=== PATIENT | male | born 1980 | race Hispanic/Latino ===

== ENCOUNTER 2017-04-07 16:12 | Emergency (ER) | payer OTHER ==
[2017-04-07 16:16] VITALS: RESP 16
[2017-04-07] MEDS ORDERED: Oxycodone/Acetaminophen 5/325 mg Tab PO STA (16:17)
[2017-04-07] MEDS ORDERED: Sodium Chloride 0.9% 1,000 ML IV STA (16:20)
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
[2017-04-07] MEDS ORDERED: Iohexol 300 100 ML IJ ONE (16:35)
[2017-04-07] MEDS ORDERED: Sodium Chloride 0.9% 50 ML IV ONE (16:36)
[2017-04-07] MEDS ORDERED: Morphine 4 MG/ML VIAL ONE ×2 (16:41→20:01)
[2017-04-07] MEDS ORDERED: Morphine 4 MG/ML VIAL IV STA (16:50)
[2017-04-07 17:16] LABS: HEMOGLOBIN 15.5 g/dL (12.0-18.0); MEAN CORPUSCULAR HEMOGLOBIN 27.3 pg (27.0-31.0); MEAN CORPUSCULAR HGB CONC 32.9 g/dL (33.0-37.0); RBC 5.69 Mil/uL (4.40-5.90); RED CELL DISTRIBUTION WIDTH 13.7 % (11.5-14.5); WHITE BLOOD COUNT 11.9 K/uL (4.8-10.8)
[2017-04-07 17:25] LABS: ALB/GLOB RATIO 1.6 (1.0-2.1); ALBUMIN 4.3 g/dL (3.5-5.0); ALT/SGPT 36 U/L (21-72); AST/SGOT 29 U/L (17-59); BLOOD UREA NITROGEN 19 mg/dl (9-20); CALCIUM 9.5 mg/dL (8.4-10.2); GFR AFRICAN-AMERICAN > 60; GFR NON-AFRICAN AMERICAN > 60
--- NOTE | 2017-04-07 17:37 | CT ---
CT lumbar spine without IV contrast Indication: Pain status post fall Comparison: None available Technique: Noncontrast axial images of the lumbar spine were provided. Sagittal and coronal reformatted images were generated and reviewed. This CT exam was performed using 1 or more of the falling dose reduction techniques: Automated exposure control, adjustment of the MAA and/or kV according to patient size, and/or use of iterative reconstruction technique. Total exam DLP: 1328.75 MGy-cm Findings: Acute fracture deformity of the L1 vertebral body compatible with compression fracture. There is an approximately 10-15 percent loss of height. No retropulsion of fracture fragments evident. 9 mm sclerotic focus involving the posterior inferior aspect of the L2 vertebral body. This focus abuts the cortex. There is no evidence of associated osseous destructive changes. Vertebral body heights appear otherwise within normal limits. Alignment appears satisfactory. No subluxation identified. Paraspinal soft tissues appear unremarkable. Limited visualization of the intra-abdominal and intrapelvic contents appear unremarkable. Impression: Evidence of acute compression fracture deformity of the L1 vertebral body. No evidence of retropulsion of fracture fragments. Correlate clinically. Indeterminate 9 mm sclerotic focus involving the posterior inferior aspect of the L2 vertebral body. This focus abuts the cortex. There is no evidence of associated osseous destructive changes. Appearance favored to reflect a benign process. Correlate clinically. Recommend outpatient MRI further evaluation/characterization.
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
[2017-04-07] MEDS ORDERED: Morphine 4 MG/ML VIAL IVP STA (20:02)
[2017-04-07 20:44] VITALS: BP 147/90; PULSE 78; TEMP 98; O2SAT 100
== END 2017-04-07 20:39 | disposition home or self-care (01) ==
LOC: H.ER 16:12
DX: S32.019A Unspecified fracture of first lumbar vertebra, initial encounter for closed fracture (principal); V19.3XXA Pedal cyclist (driver) (passenger) injured in unspecified nontraffic accident, initial encounter; Y93.55 Activity, bike riding

== ENCOUNTER 2017-09-30 07:06 | Emergency (ER) | payer OTHER ==
[2017-09-30 07:10] VITALS: BMI 31.6
[2017-09-30 07:13] VITALS: TEMP 99.2
--- NOTE | 2017-09-30 08:14 | ED PDOC ---
HPI: General Adult Time Seen by Provider: 09/30/17 07:11 Chief Complaint (Nursing): Flu-like Symptoms Chief Complaint (Provider): Flu-like Symptoms History Per: Patient History/Exam Limitations: no limitations Onset/Duration Of Symptoms: Days (x3) Current Symptoms Are (Timing): Still Present Additional Complaint(s): 37 year old male with a past medical history of HTN, who presents to the ED complaining of a fever with associated cough and congestion x3 days. Also confirms sore throat, but is able to swallow. Patient reports 1 episode of vomiting and 1 episode of diarrhea, which have both resolved. Denies chest pain , shortness of breath, diarrhea, or dysuria. PMD: Provider TBD Past Medical History Reviewed: Historical Data, Nursing Documentation, Vital Signs Vital Signs: Last Vital Signs Temp 99.2 F 09/30/17 07:10 Pulse 86 09/30/17 08:25 Resp 18 09/30/17 08:25 BP 132/76 09/30/17 08:25 Pulse Ox 97 09/30/17 08:29 - Medical History PMH: HTN - Surgical History Surgical History: No Surg Hx - Family History Family History: States: Unknown Family Hx - Immunization History Hx Tetanus Toxoid Vaccination: No Hx Influenza Vaccination: Yes Hx Pneumococcal Vaccination: No - Home Medications Home Medications: Ambulatory Orders Medication Instructions Recorded Famotidine [Pepcid] 20 mg PO HS #20 tab 10/02/15 Naproxen [Naprosyn] 1 tab PO BID PRN #25 tab 10/02/15 Home Med 1 unit .ROUTE PRN #1 ea 04/07/17 Naproxen 500 mg PO Q12H PRN #20 ect 04/07/17 oxyCODONE/Acetaminophen [Percocet 1 ea PO Q6H PRN #20 tab 04/07/17 5/325 mg Tab] Benzonatate [Tessalon Perles] 100 mg PO BID PRN 5 Days sgl 09/30/17 Ibuprofen [Motrin] 600 mg PO TID 7 Days tab 09/30/17 - Allergies Allergies/Adverse Reactions: Allergies Allergy/AdvReac Type Severity Reaction Status Date / Time No Known Allergies Allergy Verified 10/02/15 15:58 Review of Systems ROS Statement: Except As Marked, All Systems Reviewed And Found Negative Constitutional: Positive for: Fever ENT: Positive for: Throat Pain Cardiovascular: Negative for: Chest Pain Respiratory: Positive for: Cough. Negative for: Shortness of Breath Gastrointestinal: Positive for: Vomiting, Diarrhea. Negative for: Abdominal Pain, Hematemesis Genitourinary Male: Negative for: Dysuria Neurological: Negative for: Weakness, Numbness Physical Exam - Reviewed Nursing Documentation Reviewed: Yes Vital Signs Reviewed: Yes - Physical Exam Appears: Positive for: Non-toxic, No Acute Distress Head Exam: Positive for: ATRAUMATIC, NORMAL INSPECTION, NORMOCEPHALIC Skin: Positive for: Normal Color, Warm, Dry. Negative for: Rash Eye Exam: Positive for: EOMI, Normal appearance, PERRL ENT: Positive for: Nasal Congestion Neck: Positive for: Normal, Painless ROM, Supple Cardiovascular/Chest: Positive for: Regular Rate, Rhythm. Negative for: Murmur Respiratory: Positive for: Normal Breath Sounds. Negative for: Respiratory Distress Gastrointestinal/Abdominal: Positive for: Normal Exam, Bowel Sounds, Soft. Negative for: Tenderness Back: Positive for: Normal Inspection. Negative for: L CVA Tenderness, R CVA Tenderness, Vertebral Tenderness Extremity: Positive for: Normal ROM. Negative for: Pedal Edema, Deformity Neurologic/Psych: Positive for: Alert, Oriented (x3). Negative for: Motor/ Sensory Deficits - ECG O2 Sat by Pulse Oximetry: 97 (RA) Pulse Ox Interpretation: Normal - Progress ED Course And Treament: 900: Stable. AAOx3. Pain free. Tolerated po. Fu with pcp. Medical Decision Making Medical Decision Making: Time: 07:30 Initial Impression: URI r/o influenza Initial Plan: --Influenza A B --Reevaluation Time: 08:15 Upon provider evaluation patient is medically stable, and requires no further treatment in the ED at this time. Patient will be discharged with Rx for Benzonatate and Ibuprofen. Counseling was provided and all questions were answered regarding diagnosis and need for follow up with PMD. There is agreement to discharge plan. Return if symptoms persist or worsen. Scribe Attestation: Documented by Faizan Hyde, acting as a scribe for Nixon Figueroa MD. Provider Scribe Attestation: All medical record entries made by the Scribe were at my direction and personally dictated by me. I have reviewed the chart and agree that the record accurately reflects my personal performance of the history, physical exam, medical decision making, and the department course for this patient. I have also personally directed, reviewed, and agree with the discharge instructions and disposition. Disposition - Clinical Impression Clinical Impression: URI (upper respiratory infection) - Patient ED Disposition Is Patient to be Admitted: No Counseled Patient/Family Regarding: Studies Performed, Diagnosis, Need For Followup, Rx Given - Disposition Referrals: Nicki Borja MD [Primary Care Provider] - 10/01/17 Disposition: Routine/Home Disposition Time: 08:15 Condition: STABLE Additional Instructions: Return if not better in 3 days. Prescriptions: Benzonatate [Tessalon Perles] 100 mg PO BID PRN 5 Days sgl PRN Reason: Cough Ibuprofen [Motrin] 600 mg PO TID 7 Days tab Instructions: Upper Respiratory Infection (ED) Forms: [facility] ED School/Work Excuse Print Language: HUNGARIAN
[2017-09-30 08:27] VITALS: BP 132/76; PULSE 86; RESP 18
[2017-09-30 08:28] VITALS: O2SAT 97
== END 2017-09-30 08:26 | disposition home or self-care (01) ==
LOC: H.ER 07:06
DX: J06.9 Acute upper respiratory infection, unspecified (principal); I10 Essential (primary) hypertension

== ENCOUNTER 2018-03-17 03:52 | Emergency (ER) | payer OTHER ==
[2018-03-17 03:52] VITALS: BMI 31.6
[2018-03-17 04:11] VITALS: O2SAT 100
[2018-03-17] MEDS ORDERED: Iohexol 240 (50 ml) PO ONE (04:21)
--- NOTE | 2018-03-17 04:24 | ED PDOC ---
HPI: Abdomen Time Seen by Provider: 03/17/18 04:08 Chief Complaint (Nursing): Abdominal Pain Chief Complaint (Provider): abdominal pain History Per: Patient History/Exam Limitations: no limitations Onset/Duration Of Symptoms: Days (4), Waxing/Waning Current Symptoms Are (Timing): Still Present Location Of Pain/Discomfort: Diffuse Associated Symptoms: Nausea Additional Complaint(s): 38 y/o male presents for evaluation of diffuse abdominal pain x 4 days. Associated nausea. DEnies fever, chest pain, shortness of breath, palpitations , vomiting, changes in bowel movements, urinary symptoms, recent travel, sick contacts. No relief with Zantac, Advil taken at home. Past Medical History Reviewed: Historical Data, Nursing Documentation, Vital Signs Vital Signs: Last Vital Signs Temp 98.6 F 03/17/18 04:08 Pulse 75 03/17/18 04:08 Resp 16 03/17/18 04:08 BP 144/96 H 03/17/18 04:08 Pulse Ox 100 03/17/18 04:24 - Medical History PMH: HTN - Surgical History Surgical History: No Surg Hx - Family History Family History: States: Unknown Family Hx - Living Arrangements Living Arrangements: With Family - Immunization History Hx Tetanus Toxoid Vaccination: No Hx Influenza Vaccination: Yes Hx Pneumococcal Vaccination: No - Home Medications Home Medications: Ambulatory Orders Medication Instructions Recorded Famotidine [Pepcid] 20 mg PO HS #20 tab 10/02/15 Naproxen [Naprosyn] 1 tab PO BID PRN #25 tab 10/02/15 Home Med 1 unit .ROUTE PRN #1 ea 04/07/17 Naproxen 500 mg PO Q12H PRN #20 ect 04/07/17 oxyCODONE/Acetaminophen [Percocet 1 ea PO Q6H PRN #20 tab 04/07/17 5/325 mg Tab] Benzonatate [Tessalon Perles] 100 mg PO BID PRN 5 Days sgl 09/30/17 Ibuprofen [Motrin] 600 mg PO TID 7 Days tab 09/30/17 - Allergies Allergies/Adverse Reactions: Allergies Allergy/AdvReac Type Severity Reaction Status Date / Time No Known Allergies Allergy Verified 03/17/18 04:08 Review of Systems ROS Statement: Except As Marked, All Systems Reviewed And Found Negative Gastrointestinal: Positive for: Abdominal Pain Physical Exam - Reviewed Nursing Documentation Reviewed: Yes Vital Signs Reviewed: Yes - Physical Exam Appears: Positive for: Well, Non-toxic, No Acute Distress Head Exam: Positive for: ATRAUMATIC, NORMAL INSPECTION, NORMOCEPHALIC Skin: Positive for: Normal Color Eye Exam: Positive for: Normal appearance ENT: Positive for: Normal ENT Inspection Cardiovascular/Chest: Positive for: Regular Rate, Rhythm Respiratory: Positive for: Normal Breath Sounds Gastrointestinal/Abdominal: Positive for: Bowel Sounds, Soft, Tenderness ( diffuse) Back: Positive for: Normal Inspection Extremity: Positive for: Normal ROM Neurologic/Psych: Positive for: Alert, Oriented (x3) - Laboratory Results Result Diagrams: 03/17/18 04:38 03/17/18 04:38 - ECG ECG: Positive for: Viewed By Me (reviewed by Racquel attending) ECG Rhythm: Positive for: Sinus Rhythm O2 Sat by Pulse Oximetry: 100 - Progress ED Course And Treament: ekg, labs, urine, CT abd/pelvis, IV toradol, IV pepcid Disposition - Clinical Impression Clinical Impression: Abdominal pain - Disposition Disposition: Transfer of Care Disposition Time: 06:00 Condition: STABLE Forms: [employer] [facility] (Sinhala) Patient Signed Over To: Solis Hargrove Handoff Comments: pending ct
[2018-03-17 04:56] LABS: BASO # 0.1 K/uL (0.0-0.2); BASO % 1.1 % (0.0-2.0); EOS # 0.2 K/uL (0.0-0.7); EOS % 1.7 % (0.0-4.0); HEMOGLOBIN 14.4 g/dL (12.0-18.0); LYMPH # 2.6 K/uL (1.0-4.3); LYMPH % 29.1 % (20.0-40.0); MEAN CELL VOLUME 81.8 fl (80.0-94.0); MEAN CORPUSCULAR HEMOGLOBIN 27.4 pg (27.0-31.0); MEAN CORPUSCULAR HGB CONC 33.5 g/dL (33.0-37.0); MEAN PLATELET VOLUME 8.9 fl (7.2-11.7); MONO # 0.8 K/uL (0.0-0.8); MONO % 9.2 % (0.0-10.0); NEUT # 5.3 K/uL (1.8-7.0); NEUT % 58.9 % (50.0-75.0); NRBC % 0.1 % (0.0-0.0); RBC 5.24 Mil/uL (4.40-5.90); RED CELL DISTRIBUTION WIDTH 13.8 % (11.5-14.5)
[2018-03-17 04:57] LABS: ALB/GLOB RATIO 1.4 (1.0-2.1); ALT/SGPT 26 U/L (21-72); AST/SGOT 18 U/L (17-59); BLOOD UREA NITROGEN 12 mg/dl (9-20); GFR NON-AFRICAN AMERICAN > 60; LIPASE 52 U/L (23-300)
[2018-03-17] MEDS ORDERED: Iohexol 240 (50 ml) ONE (05:48)
--- NOTE | 2018-03-17 07:23 | ED PDOC ---
- Laboratory Results Result Diagrams: 03/17/18 04:38 03/17/18 04:38 - ECG O2 Sat by Pulse Oximetry: 100 (RA) Pulse Ox Interpretation: Normal Medical Decision Making Medical Decision Making: Patient signed out to provider at [address]rove pending CT and reeval. Documented by Pilar Merida acting as a scribe for Ramy Delgado MD. All medical record entries made by the Scribe were at my direction and personally dictated by me. I have reviewed the chart and agree that the record accurately reflects my personal performance of the history, physical exam, medical decision making, and the department course for this patient. I have also personally directed, reviewed, and agree with the discharge instructions and disposition. Disposition - Clinical Impression Clinical Impression: Abdominal pain, Gastritis - POA Present On Arrival: None - Disposition Referrals: [facility] [Outside] Disposition: Routine/Home Disposition Time: 11:01 Condition: FAIR Prescriptions: Ondansetron [Zofran] 4 mg PO Q8H #10 tab Pantoprazole Sodium [Protonix] 40 mg PO DAILY #30 tablet. Instructions: Gastritis Forms: [employer] (Tajik)
[2018-03-17 07:46] VITALS: TEMP 98.4
[2018-03-17] MEDS ORDERED: Iohexol 300 100 ML IJ ONE (08:09)
[2018-03-17 09:15] LABS: SQUAMOUS EPITHIAL < 1 /hpf (0-5); URINE BACTERIA RARE (<OCC); URINE BILIRUBIN NEGATIVE (NEGATIVE); URINE BLOOD NEGATIVE (NEGATIVE); URINE CLARITY SLIGHTY-CLOUDY (Clear); URINE COLOR YELLOW (YELLOW); URINE GLUCOSE (UA) NEG (Normal); URINE LEUKOCYTE ESTERASE NEG Leu/uL (Negative); URINE PROTEIN NEGATIVE (NEGATIVE); URINE UROBILINOGEN 0.2-1.0 mg/dL (0.2-1.0)
--- NOTE | 2018-03-17 10:50 | CT ---
Date of service: 03/17/2018 PROCEDURE: CT Abdomen and Pelvis with contrast HISTORY: abd pain COMPARISON: Abdomen pelvis CT with contrast 04/07/2017. TECHNIQUE: Following oral and intravenous contrast administration, a CT examination of the abdomen and pelvis performed from the domes of the diaphragms to the symphysis pubis with reformatted datasets provided not only axial but also sagittal and coronal series. Contrast dose: Omnipaque 300, 95 cc Radiation dose: Total exam DLP = 822.31 mGy-cm. This CT exam was performed using one or more of the following dose reduction techniques: Automated exposure control, adjustment of the mA and/or kV according to patient size, and/or use of iterative reconstruction technique. FINDINGS: LOWER THORAX: Unremarkable. LIVER: Diminished hepatic attenuation is appreciate compatible with diffuse fatty infiltration. No focal hepatic mass or intrahepatic biliary dilatation is identified. GALLBLADDER AND BILE DUCTS: The gallbladder remains unremarkable. No prominent common bile duct identified. PANCREAS: Unremarkable. No gross lesion or ductal dilatation. SPLEEN: Unremarkable. ADRENALS: Unremarkable. No mass. KIDNEYS AND URETERS: Unremarkable. No hydronephrosis. No solid mass. VASCULATURE: Unremarkable. No aortic aneurysm. BOWEL: The stomach is minimally distended with retained oral contrast material and air with no gross pathological findings appreciable. There is no bowel obstruction appreciated or prominent mural thickening throughout small large-bowel loops as imaged appear small-bowel is limited at proximal and mid segments of the oral contrast transit beyond these segments. Opacified small bowel is unremarkable appearing. APPENDIX: Normal appendix. PERITONEUM: Unremarkable. No free fluid. No free air. LYMPH NODES: Unremarkable. No enlarged lymph nodes. BLADDER: Unremarkable. REPRODUCTIVE: Unremarkable. BONES: Interval further compression of L1 vertebral body with anterior wedging increased to [id number] severity at this time. Stable inferior left L2 vertebral body sclerotic focus, likely nonaggressive. OTHER FINDINGS: None. IMPRESSION: Further hepatic steatosis compared to prior CT 04/07/2017. No definite acute abdominal or pelvic findings as discussed above.
[2018-03-17 11:30] VITALS: BP 118/87; PULSE 64; RESP 15
== END 2018-03-17 11:29 | disposition home or self-care (01) ==
LOC: H.ER 03:52
DX: K29.70 Gastritis, unspecified, without bleeding (principal); R10.9 Unspecified abdominal pain; I10 Essential (primary) hypertension; K76.0 Fatty (change of) liver, not elsewhere classified
CPT/HCPCS: 74177; 80053; 81003; 83690; 85025; 96374; 99283; J1885; J2405; Q9966; Q9967